=== PATIENT | female | born 1965 | race Caucasian/White ===

== ENCOUNTER 2016-11-05 11:45 | Outpatient (CLI) | payer OTHER ==
--- NOTE | 2016-11-05 13:49 | DIAGNOSTIC IMAGING REPORT ---
PROCEDURE: DEXA BONE DENSITY STUDY CLINICAL INDICATION: EARLY MENOPAUSE COMPARISON: None. FINDINGS: LUMBAR SPINE: Bone mineral density 1.019 g/cm2, T score -0.3 normal LEFT HIP: Bone mineral density 0.878 g/cm2, T score -0.5 normal LEFT FEMORAL NECK: Bone mineral density 0.793 g/cm2, T score -0.5 normal FRACTURE RISK CALCULATION ( when applicable): 10-year fracture risk of a major osteoporotic fracture and of a hip fracture not reported because all T-scores at or above -1.0 (T score greater or equal to -1.0 to: NORMAL) (T score from -1.1 to -2.4: OSTEOPENIA) (T score ess than or equal to -2.5: OSTEOPOROSIS) IMPRESSION: 1. Normal spine hip and femoral neck
[2017-01-27] MEDS ORDERED: FLONASE AL50 MCG/ACT PO (17:31)
[2017-01-27] MEDS ORDERED: ZYRTEC ALLERGY10 MG PO (17:32)
== END 2016-11-05 23:00 ==
LOC: XR SRH 11:45
DX: Z78.0 Asymptomatic menopausal state (principal)

== ENCOUNTER 2017-01-08 13:24 | Outpatient (CLI) | payer OTHER ==
--- NOTE | 2017-01-09 13:51 | DIAGNOSTIC IMAGING REPORT ---
PROCEDURE: MG BILATERAL SCREENING W/CAD INDICATION: SCREENING. Maternal aunt with a history of breast cancer. TECHNIQUE: Bilateral CC and MLO digital views. COMPARISON: Right mammogram and right breast ultrasound 01/11/2016, bilateral mammograms 01/01/2016, 12/07/14 and 02/25/2013. FINDINGS: Computer-aided detection applied. Moderately dense. Progression of 2 cm previously documented cyst in the right upper outer quadrant. No suspicious mass or pleomorphic microcalcifications. IMPRESSION: 1. Progression of 2 cm cyst in the right upper outer quadrant 2. No mammographic evidence of malignancy. RESULT CODE: 2- Benign finding(s). A. A negative report should not delay biopsy if a dominant or clinically suspicious mass is present. 10-15% of cancers are not identified by x-ray. B. A negative report may reinforce clinical impression. C. Adenosis and dense breasts may obscure an underlying neoplasm. D. False positive reports average 6-10%. E.. A yearly screening mammogram is recommended. A reminder letter will be scheduled.
[2017-01-27] MEDS ORDERED: FLONASE AL50 MCG/ACT PO (17:31)
[2017-01-27] MEDS ORDERED: ZYRTEC ALLERGY10 MG PO (17:32)
== END 2017-01-08 23:00 ==
LOC: MAM SRH 13:24
DX: Z12.31 Encounter for screening mammogram for malignant neoplasm of breast (principal); Z80.3 Family history of malignant neoplasm of breast; N60.01 Solitary cyst of right breast

== ENCOUNTER 2017-01-30 08:10 | Day surgery (SDC) | payer OTHER ==
[~2017-01-30] VITALS: Ht 180.3 cm; Wt 92.0 kg
[~2017-01-30 08:10] MED LIST: FLONASE AL50 MCG/ACT PO; ZYRTEC ALLERGY10 MG PO
--- NOTE | 2017-01-30 08:40 | NUR ---
PRE OP INSTRUCTIONS GIVEN AND SAFETY ISSUES DISCUSSED PT AND SPOUSE HAD QUESTIONS ANSWERED PT CONFIRMED PROCEDURE PT SIGNED CONSENT
--- NOTE | 2017-01-30 08:41 | NUR ---
PT CONCERNED ABOUT A PROLAPSE THAT OCCURRED WHILE DOING PREP
--- NOTE | 2017-01-30 09:53 | NUR ---
PERSONAL PHONE PATIENT LABEL AFFIXED, KEPT ON INTELLIGENCE ANALYST PERSON UNTIL RETURNED TO PATIENT IN PACU.
--- NOTE | 2017-01-30 09:59 | NUR ---
PHONE GIVEN TO FUR POLISHER
--- NOTE | 2017-01-30 10:22 | Provider's Discharge Care Plan ---
Problem, Goal, Plan Problem List 1. Colon polyps
--- NOTE | 2017-01-30 10:22 | Provider's Discharge Care Plan ---
Problem, Goal, Plan Problem List 1. Colon polyps
--- NOTE | 2017-01-30 10:57 | OPERATIVE REPORT ---
DATE OF SURGERY: 01/30/2017 SURGEON: Florin Wilson MD PREOPERATIVE DIAGNOSES: 1. Colon cancer risk 2. Rectal bleeding POSTOPERATIVE DIAGNOSES: 1. Colon polyps 2. Rectocele PROCEDURE PERFORMED: 1. Colonoscopy with snare polypectomy ANESTHESIA: Total IV general. INDICATIONS: The patient is a 51-year-old woman with previous polyps. During the bowel prep, she noted bleeding from her perineum and had a large bulging mass coming out of the vagina. She took a photo, and this resembled grossly a rectocele, which has since gone back in and may have been related to the amount of stool she was having with the prep. SURGICAL TECHNIQUE: The patient was taken to the endoscopy suite, where total IV general was administered and the patient was placed in the left lateral decubitus position. Examination of the perineum demonstrated a lax anterior rectal wall. With palpation of the rectum, it was possible to push out a rectocele, which is consistent with the patient's recent symptomatology. The colonoscope was advanced through the rectum under direct vision and the cecum reached and the tip of the cecum was visualized. On withdrawal, there were 2 sessile polyps, about 10 mm in diameter. One was toward the cecum, in the ascending colon, and this was encircled with a cautery snare and taken out in 2 pieces with gentle tangential applications of cautery. The second one was higher up in the right colon, about [address], and this was removed in a similar fashion. Tissue was recovered and submitted for histopathology. The rest of the colon demonstrated no additional polyps, including a retroflexed view of the rectum. The patient left in good condition and no intraoperative complications were encountered.
--- NOTE | 2017-01-30 11:09 | NUR ---
PT RETURNED FROM PACU PASSING FLATUS NO C/O DISCOMFORT
--- NOTE | 2017-01-30 11:42 | NUR ---
PT UP IN ROOM NO C/O DISCOMFORT ASKED ABOUT GOING HOME REVIEWED DISCHARGE INSTRUCTIONS VERBAL AND WRITTEN PT EXPRESSED UNDERSTANDING
--- NOTE | 2017-01-30 11:55 | NUR ---
PT DISCHARGED AMBULATORY ACCOMPANIED BY SPOUSE
[2017-01-30 14:42] VITALS: BP 106/52
== END 2017-01-30 11:56 | disposition home or self-care (01) ==
LOC: OR SRH 08:10 → SCU SRH 08:13 → OR SRH 09:00
PROVIDERS: Surgery
PROC: 0DBK8ZX Excision of Ascending Colon, Via Natural or Artificial Opening Endoscopic, Diagnostic (ICD-10-PCS; principal; 2017-01-30 09:45)
PROC: 0DBH8ZX Excision of Cecum, Via Natural or Artificial Opening Endoscopic, Diagnostic (ICD-10-PCS; principal; 2017-01-30 09:45)
DX: Z12.11 Encounter for screening for malignant neoplasm of colon (principal); D12.0 Benign neoplasm of cecum; D12.2 Benign neoplasm of ascending colon; N81.6 Rectocele; Z86.010 Personal history of colon polyps
CPT/HCPCS: 29229; 29240; 50004; 60001; 82900; 83526